=== PATIENT | male | born 1980 | race Caucasian/White ===

== ENCOUNTER → 2017-06-12 | Outpatient (CLI) | payer OTHER ==
[~2017-06-12] MED LIST: ACET-2146 PO; BARIUM SULFATE 176 GM BTL PO ONE; BARIUM SULFATE 340 GM POWD ONE; DIA5 PO; DOCU-416 PO; GABA-549 PO; HYDR-4309 PO; KET10 PO; NO ROUTINE MEDS; OMEP-218 PO; OXYC-854 PO; OXYC-865 PO
--- NOTE | 2017-06-12 17:23 | RADIOLOGY IMAGING REPORT ---
FACILITY: [facility] - [place] PATIENT NAME: Raul Fleming : 1980 MR: [id number] V: [id number] EXAM DATE: ORDERING PHYSICIAN: JOHNNY FRASER TECHNOLOGIST: Location: [facility] - [place] Patient: Raul Fleming : 1980 Visit/Account:[id number] Date of Sevice: 06/12/2017 Exam type: UPPER GI SERIES W/O AIR History: GERD Comparison: None. Findings: Double contrast upper GI series was performed with thick and thin barium. There is a small hiatal he rnia with a large amount of gastroesophageal reflux. No significant esophageal narrowing or mucosal erosion was seen. No abnormality of the stomach duodenal bulb or duodenal C-loop was seen. The fluo roscopy dose area product was 1063.95 micro-[place] per meter squared IMPRESSION: 1. Small hiatal hernia with a large amount of gastric esophageal reflux although no significant esop hageal narrowing or mucosal erosion. Report Dictated By: Alisson Lopez MD at 06/12/2017 5:16 PM Report E-Signed By: Alisson Lopez MD at 06/12/2017 5:20 PM WSN:[id number]
== END ==
LOC: RAD 01:53
PROVIDERS: ATTEND Family Medicine
DX: K44.9 Diaphragmatic hernia without obstruction or gangrene (principal); K21.9 Gastro-esophageal reflux disease without esophagitis
CPT/HCPCS: 74240